=== PATIENT | female | born 2005 | race Caucasian/White ===

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

== ENCOUNTER 2023-01-26 11:50 | Emergency (ER) | payer OTHER, MEDICAID, SELFPAY ==
[2023-01-26 11:53] VITALS: BP 144/83; PULSE 87; RESP 16; TEMP 36.4; O2SAT 99; BMI 19.2
--- NOTE | 2023-01-26 12:07 | DI.RAD.S_ITS ---
PROCEDURE: XR CHEST 1V INDICATIONS: Chest pain TECHNIQUE: One view of the chest was acquired. COMPARISON: None. FINDINGS: Surgical changes and devices: None. Lungs and pleura: Lungs are clear. No pleural effusions or pneumothorax. Mediastinum: Mediastinal contours appear normal. Heart size is normal. Bones and chest wall: No suspicious bony lesions. Overlying soft tissues appear unremarkable. IMPRESSION: No acute cardiopulmonary abnormality is seen. Dictated by: Raj Lucero M.D. on 01/26/2023 at 11:33 Approved by: Raj Lucero M.D. on 01/26/2023 at 11:36
[2023-01-26 12:12] VITALS: PULSE 80; RESP 26; O2SAT 99
[2023-01-26 12:30] VITALS: BP 128/84; PULSE 81; RESP 25; O2SAT 100
--- NOTE | 2023-01-26 12:33 | ED.GENADULT ---
HPI - General Adult General Chief complaint: Abdominal Pain Stated complaint: severe abd pain severe chest pain Time Seen by Provider: 01/26/23 12:03 Source: patient Mode of arrival: Ambulatory History of Present Illness HPI narrative: Patient is a 17-year-old female. Has had a longstanding history of abdominal discomfort. Has been seen here in the emergency department multiple times. He is being followed by GI. Had an abdominal MRI done on of last week. This was performed at an outside facility. She is here because of the continued abdominal pain and also no chest pain. She describes left side of her chest. It is a pressure. Potentially gets worse with palpation. Reports fevers at home. No cough. No sore throat. No headache. Related Data Previous Rx's Medication Instructions Recorded acetaminophen 300 mg-codeine 30 mg 1 tab PO Q4-6H PRN pain #7 tabs 03/27/21 tablet metoclopramide HCl 10 mg tablet 10 mg PO Q6H PRN nausea and 12/18/22 (Reglan) vomiting #20 tabs tetracycline 500 mg capsule 500 mg PO Q12H #14 caps 12/22/22 dicyclomine 20 mg tablet 20 mg PO BID PRN abdominal pain 12/28/22 #30 tabs metoclopramide HCl 10 mg tablet 10 mg PO Q6H PRN nausea and 12/28/22 (Reglan) vomiting #30 tabs promethazine 25 mg tablet 25 mg PO Q6H PRN nausea and 01/26/23 vomiting #14 tabs Allergies Allergy/AdvReac Type Severity Reaction Status Date / Time cephalexin AdvReac Mild Vomiting, Verified 12/28/22 19:19 bloody diarrhea Review of Systems Constitutional Constitutional: Reports system reviewed and no additional complaints, except as documented Cardiovascular Cardiovascular: Reports system reviewed and no additional complaints, except as documented Respiratory Respiratory: Reports system reviewed and no additional complaints, except as documented Gastrointestinal Gastrointestinal: Reports system reviewed and no additional complaints, except as documented Hematologic/Lymphatic On Anticoagulants: No Patient History Medical History Healthy adult Social History housing: house Smoking Status: Never smoker Smoking Status: Never smoker alcohol intake frequency: 0-2 drinks per day Substance Use Type: marijuana Exam Initial Vital Signs Initial Vital Signs: Vital Signs Temperature 97.5 F L 01/26/23 11:53 Pulse Rate 87 01/26/23 11:53 Respiratory Rate 16 01/26/23 11:53 Blood Pressure 144/83 H 01/26/23 11:53 Pulse Oximetry 99 01/26/23 11:53 Oxygen Delivery Method Room Air 01/26/23 11:53 Const General: cooperative, comfortable and No ill appearing HENMT Head: normal to inspection Chest Other: Mild tenderness to palpation left anterior chest Resp Effort & Inspection: normal respiratory effort Auscultation: clear to auscultation bilaterally Cardio Rate: regular rate Skin General: no rashes or lesions noted Neuro General: patient alert and patient awake Extrem General: capillary refill normal Course Orders Ordered: ED Orders 01/26/23 12:07 XR chest 1V Stat EKG-12 Lead Stat 01/26/23 12:40 Complete Blood Count AUTO DIFF Stat Comprehensive Metabolic Panel Stat Lipase Stat Discontinued Medications Ondansetron HCl (Ondansetron 4 Mg Odt) 4 mg SL NOW ONE Stop: 01/26/23 12:22 Last Admin: 01/26/23 12:25 Dose: Not Given Documented By: ORALIA Ondansetron HCl (Ondansetron 4 Mg/2 Ml Inj) 4 mg IV NOW ONE Stop: 01/26/23 12:32 Last Admin: 01/26/23 12:43 Dose: 4 mg Documented By: ORALIA Tramadol HCl (Tramadol 50 Mg Prepack) 1 bottle MISC DIRECTED ONE Stop: 01/26/23 14:45 Vital Signs Vital signs: Vital Signs - 8 hr 01/26/23 11:53 01/26/23 12:12 01/26/23 12:30 Temperature 97.5 F L Pulse Rate 87 80 81 Respiratory Rate 16 26 H 25 H Blood Pressure 144/83 H Pulse Oximetry 99 99 100 Oxygen Delivery Method Room Air Room Air Room Air 01/26/23 12:30 01/26/23 13:00 01/26/23 13:00 Temperature Pulse Rate 71 Respiratory Rate 28 H Blood Pressure 128/84 111/74 Pulse Oximetry 99 Oxygen Delivery Method Room Air 01/26/23 13:30 01/26/23 13:30 01/26/23 14:00 Temperature Pulse Rate 69 69 Respiratory Rate 25 H 25 H Blood Pressure 112/68 Pulse Oximetry 99 98 Oxygen Delivery Method Room Air Room Air 01/26/23 14:00 Temperature Pulse Rate Respiratory Rate Blood Pressure 120/69 Pulse Oximetry Oxygen Delivery Method Medical Decision Making Lab Data 01/26/23 12:40 01/26/23 12:40 Labs: Lab Results 01/26/23 Range/Units 12:40 WBC 3.7 L (4.5-11.0) X10^3/uL RBC 4.09 (4.0-5.2) X10^6/uL Hgb 12.2 (12.0-16.0) g/dL Hct 35.8 L (36-46) % MCV 87.5 (80-100) fL MCH 29.7 (26-34) PG MCHC 34.0 (30-36) % RDW 12.4 (11.6-14.8) % Plt Count 137 L (150-400) X10^3/uL Neut % (Auto) 62.7 (50-75) % Lymph % (Auto) 29.5 (25-40) % [place] % (Auto) 6.5 (3-14) % Eos % (Auto) 0.7 L (2-4) % Baso % (Auto) 0.6 (0-2) % Neut # (Auto) 2300 (3151-5190) /uL Lymph # (Auto) 1100 (9042-3135) /uL [place] # (Auto) 200 (0-900) /uL Eos # (Auto) 0 (0-450) /uL Baso # (Auto) 0 (0-100) /uL Sodium 136 L (137-145) mmol/L Potassium 3.5 (3.4-5.1) mmol/L Chloride 103 (98-107) mmol/L Carbon Dioxide 25 (22-32) mmol/L BUN 9 (7-17) mg/dL Creatinine 0.54 (0.52-1.04) mg/dL Estimated GFR > 60 (>60) mL/min BUN/Creatinine Ratio 16.7 (6-22) Glucose 86 (70-100) mg/dL Calcium 9.5 (8.4-10.2) mg/dL Total Bilirubin 0.5 (0.2-1.3) mg/dL AST 18 (14-36) IU/L ALT 12 (<35) IU/L Alkaline Phosphatase 52 (38-126) U/L Total Protein 7.4 (6.3-8.2) g/dL Albumin 4.7 (3.5-5.0) g/dL Globulin 2.7 (1.7-4.1) g/dL Albumin/Globulin Ratio 1.7 (1.0-2.8) Lipase 27 (23-300) U/L Imaging Data Chest x-ray: Radiologist's Impression: PROCEDURE:? XR CHEST 1V ? INDICATIONS:? Chest pain ? TECHNIQUE:? One view of the chest was acquired.?? ? COMPARISON:? None. ? FINDINGS:?? ? Surgical changes and devices:? None.?? ? Lungs and pleura:? Lungs are clear.? No pleural effusions or pneumothorax.?? ? Mediastinum:? Mediastinal contours appear normal.? Heart size is normal.?? ? Bones and chest wall:? No suspicious bony lesions.? Overlying soft tissues appear? unremarkable.? IMPRESSION:?? ? No acute cardiopulmonary abnormality is seen.? ECG Data Attestation: I personally reviewed and interpreted this ECG as follows: Interpretation: Sinus rhythm Ventricular rate is 77 Normal axis Normal QRS No ST T wave changes MDM Narrative Medical decision making narrative: Workup here in the emergency department is unremarkable. Labs are unchanged from prior. Chest x-ray is unremarkable. Further workup is required in the ER. Advised the patient that she contact her GI doctor to discuss the MRI results she had done at the end of last week. I do not have those here available to discuss with her. Low suspicion for ACS. No indication for antibiotics. Supple sent home with a prescription for Phenergan as she is still having some nausea at home. Prepack of tramadol. Patient was given return precautions. She expressed understanding and agreement. Discharge Plan Departure Patient Disposition: Home Clinical Impression: Abdominal pain, Chest pain Instructions: DI for Abdominal Pain-Adult Activity Restrictions/Additional Instructions: Recommend that you continue to take all of your medications as directed. I also recommend that you contact the GI doctor tomorrow to discuss the findings of the MRI. Return to the emergency department for new symptoms. Prescriptions: New promethazine 25 mg tablet 25 mg PO Q6H PRN (Reason: nausea and vomiting) Qty: 14 0RF No Action metoclopramide HCl [Reglan] 10 mg tablet 10 mg PO Q6H PRN (Reason: nausea and vomiting) Qty: 20 0RF tetracycline 500 mg capsule 500 mg PO Q12H Qty: 14 0RF dicyclomine 20 mg tablet 20 mg PO BID PRN (Reason: abdominal pain) Qty: 30 0RF metoclopramide HCl [Reglan] 10 mg tablet 10 mg PO Q6H PRN (Reason: nausea and vomiting) Qty: 30 0RF acetaminophen-codeine 300-30 mg tablet 1 tab PO Q4-6H PRN (Reason: pain) Qty: 7 0RF Referrals: Krystyna Painting MD [Primary Care Provider] - Stand Alone Forms: Patient Portal/API
[2023-01-26] MEDS: ONDANSETRON 4 MG/2 ML INJ IV (12:43)
[2023-01-26 12:45] LABS: Add Manual Diff / Slide Review NO; Basophils Absolute Auto 0 /uL (0-100); Basophils Percent Auto 0.6 % (0-2); Eosinophils Absolute Auto 0 /uL (0-450); Eosinophils Percent Auto 0.7 % (2-4); Hematocrit 35.8 % (36-46); Hemoglobin 12.2 g/dL (12.0-16.0); Lymphocytes Absolute Auto 1100 /uL (1100-4500); Lymphocytes Percent Auto 29.5 % (25-40); Mean Corpuscular Hemoglobin 29.7 PG (26-34); Mean Corpuscular Volume 87.5 fL (80-100); Monocytes Absolute Auto 200 /uL (0-900); Monocytes Percent Auto 6.5 % (3-14); Neutrophils Absolute Auto 2300 /uL (1500-7000); Neutrophils Percent Auto 62.7 % (50-75); Platelet Count 137 X10^3/uL (150-400); Red Blood Cell Count 4.09 X10^6/uL (4.0-5.2); Red Cell Distribution Width 12.4 % (11.6-14.8); White Blood Cell Count 3.7 X10^3/uL (4.5-11.0)
[2023-01-26 12:56] LABS: Alanine Aminotransferase 12 IU/L (<35); Albumin 4.7 g/dL (3.5-5.0); Albumin Globulin Ratio 1.7 (1.0-2.8); Alkaline Phosphatase 52 U/L (38-126); Aspartate Aminotransferase 18 IU/L (14-36); BUN Creatinine Ratio 16.7 (6-22); Bilirubin Total 0.5 mg/dL (0.2-1.3); Blood Urea Nitrogen 9 mg/dL (7-17); Calcium 9.5 mg/dL (8.4-10.2); Carbon Dioxide 25 mmol/L (22-32); Chloride 103 mmol/L (98-107); Estimated Glomerular Filt Rate > 60 mL/min (>60); Globulin 2.7 g/dL (1.7-4.1); Glucose 86 mg/dL (70-100); HEMOLYSIS < 15 (0-50); Lipase 27 U/L (23-300); Potassium 3.5 mmol/L (3.4-5.1); Sodium 136 mmol/L (137-145); Total Protein 7.4 g/dL (6.3-8.2)
[2023-01-26 13:00] VITALS: BP 111/74; PULSE 71; RESP 28; O2SAT 99
[2023-01-26 13:30] VITALS: BP 112/68; PULSE 69; RESP 25; O2SAT 99
[2023-01-26 14:00] VITALS: BP 120/69; PULSE 69; RESP 25; O2SAT 98
[2023-01-26] MEDS: TRAMADOL 50 MG PREPACK 1 BOTTLE MISC (14:56)
== END 2023-01-26 15:00 | disposition home or self-care (01) ==
PROVIDERS: Emergency Provider Emergency Medicine; PCP Family Medicine
DX: R07.9 Chest pain, unspecified (principal); R10.9 Unspecified abdominal pain
CPT/HCPCS: 36415; 71045; 80053; 83690; 85025; 93005; 96374; 99284; J2405

== ENCOUNTER 2023-03-02 15:01 | Emergency (ER) | payer OTHER, MEDICAID, SELFPAY ==
[2023-03-02 15:04] VITALS: BP 125/70; PULSE 115; RESP 20; TEMP 36.2; O2SAT 99; BMI 19.2
--- NOTE | 2023-03-02 15:18 | ED.ABDPAIN ---
HPI - Abdominal Pain <Erinn Tinoco PA-C - Last Filed: 03/02/23 19:04> General Chief Complaint: Abdominal Pain Stated Complaint: states compressed celiac artery/pre-surg/pain Time Seen by Provider: 03/02/23 15:17 Source: patient Mode of arrival: Ambulatory History of Present Illness HPI narrative: Patient is a 17-year-old female with longstanding history of abdominal pain. 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 She is going to consult with surgery tomorrow. She was given a prescription for pain medication, but it was not authorized. She endorses a fever several days ago of 101.5, but states that she is been having fevers on and off regularly. She states that her primary care is with [facility]. She notes her primary care provider prescribed her 2 rounds of 18 pills of hydrocodone Tylenol. Patient states she takes 1 hydrocodone a day, and tries to avoid taking it when possible. She states that over the weekend the insurance did not authorize the most recent prescription and she was unable to pick it up. She states her abdominal pain is worse in the center left side in his a 09/02. She also reports that she is had regular vomiting. She states she took Phenergan today, but it does not seem to be working as well. She notes that she does not take Zofran because it is not effective for her. She also states she is had to avoid NSAIDs, because she thinks she is been told her blood is thin. Her most recent episode of pain started about 3 days ago and kept her up all last night. Pain medication which she thinks his hydrocodone Tylenol Related Data Previous Rx's Medication Instructions Recorded acetaminophen 300 mg-codeine 30 mg 1 tab PO Q4-6H PRN pain #7 tabs 03/27/21 tablet metoclopramide HCl 10 mg tablet 10 mg PO Q6H PRN nausea and 12/18/22 (Reglan) vomiting #20 tabs tetracycline 500 mg capsule 500 mg PO Q12H #14 caps 12/22/22 dicyclomine 20 mg tablet 20 mg PO BID PRN abdominal pain 12/28/22 #30 tabs metoclopramide HCl 10 mg tablet 10 mg PO Q6H PRN nausea and 12/28/22 (Reglan) vomiting #30 tabs promethazine 25 mg tablet 25 mg PO Q6H PRN nausea and 01/26/23 vomiting #14 tabs acetaminophen 300 mg-codeine 30 mg 1 tab PO Q4-6H PRN pain #7 tabs 03/02/23 tablet Allergies Allergy/AdvReac Type Severity Reaction Status Date / Time cephalexin AdvReac Mild Vomiting, Verified 12/28/22 19:19 bloody diarrhea Review of Systems <Erinn Tinoco PA-C - Last Filed: 03/02/23 19:04> Review of Systems Narrative: see HPI Patient History <Erinn Tinoco PA-C - Last Filed: 03/02/23 19:04> Medical History Healthy adult Social History housing: house Smoking Status: Never smoker Smoking Status: Never smoker alcohol intake frequency: 0-2 drinks per day Substance Use Type: marijuana Exam <Erinn Tinoco PA-C - Last Filed: 03/02/23 19:04> Initial Vital Signs Initial Vital Signs: Vital Signs Temperature 97.2 F L 03/02/23 15:04 Pulse Rate 115 H 03/02/23 15:04 Respiratory Rate 20 03/02/23 15:04 Blood Pressure 125/70 03/02/23 15:04 Pulse Oximetry 99 03/02/23 15:04 Oxygen Delivery Method Room Air 03/02/23 15:04 GENERAL: 17 year old patient appears stated age. Well-developed patient, in no acute distress. HEAD: Atraumatic. Normocephalic. EYES: Pupils equal round and reactive. Extraocular motions intact. No scleral icterus. No injection or drainage. NECK: Trachea midline. Non tender. CARDIOVASCULAR: Regular rate and rhythm without murmurs, gallops, or rubs. RESPIRATORY: Clear to auscultation. Breath sounds equal bilaterally. No wheezes, rales, or rhonchi. GASTROINTESTINAL: Abdomen soft, tender in epigastric area, nontender in bilateral lower quadrants NEURO: AOx3. SKIN: No rash or erythema of visible areas <Azar Ley DO - Last Filed: 03/04/23 17:59> Initial Vital Signs Initial Vital Signs: Vital Signs Temperature 97.2 F L 03/02/23 15:04 Pulse Rate 115 H 03/02/23 15:04 Respiratory Rate 20 03/02/23 15:04 Blood Pressure 125/70 03/02/23 15:04 Pulse Oximetry 99 03/02/23 15:04 Oxygen Delivery Method Room Air 03/02/23 15:04 Course <Erinn Tinoco PA-C - Last Filed: 03/02/23 19:04> Orders Ordered: Discontinued Medications Sodium Chloride (Normal Saline 0.9%) 1,000 mls @ 1,000 mls/hr IV BOLUS PRN PRN Reason: Fluid replacement Last Infusion: 03/02/23 18:02 Dose: Infused Documented By: JULIO CÉSAR Admin: 03/02/23 17:00 Dose: 1,000 mls/hr Documented By: JULIO CÉSAR Oxycodone HCl (Oxycodone Ir 5 Mg Tablet) 5 mg PO NOW ONE Stop: 03/02/23 16:29 Last Admin: 03/02/23 17:15 Dose: Not Given Documented By: JULIO CÉSAR Oxycodone HCl (Oxycodone Ir 5 Mg Tablet) 5 mg PO NOW ONE Stop: 03/02/23 16:40 Last Admin: 03/02/23 17:15 Dose: 5 mg Documented By: JULIO CÉSAR Vital Signs Vital signs: Vital Signs - 8 hr 03/02/23 15:04 03/02/23 16:08 03/02/23 18:43 Temperature 97.2 F L Pulse Rate 115 H 91 H 82 Respiratory Rate 20 21 18 Blood Pressure 125/70 112/70 118/74 Pulse Oximetry 99 97 98 Oxygen Delivery Method Room Air Room Air Room Air <Azar Ley DO - Last Filed: 03/04/23 17:59> Orders Ordered: Discontinued Medications Sodium Chloride (Normal Saline 0.9%) 1,000 mls @ 1,000 mls/hr IV BOLUS PRN PRN Reason: Fluid replacement Last Infusion: 03/02/23 18:02 Dose: Infused Documented By: JULIO CÉSAR Admin: 03/02/23 17:00 Dose: 1,000 mls/hr Documented By: JULIO CÉSAR Oxycodone HCl (Oxycodone Ir 5 Mg Tablet) 5 mg PO NOW ONE Stop: 03/02/23 16:29 Last Admin: 03/02/23 17:15 Dose: Not Given Documented By: JULIO CÉSAR Oxycodone HCl (Oxycodone Ir 5 Mg Tablet) 5 mg PO NOW ONE Stop: 03/02/23 16:40 Last Admin: 03/02/23 17:15 Dose: 5 mg Documented By: JULIO CÉSAR Vital Signs Vital signs: Vital Signs - 8 hr 03/02/23 15:04 03/02/23 16:08 03/02/23 18:43 Temperature 97.2 F L Pulse Rate 115 H 91 H 82 Respiratory Rate 20 21 18 Blood Pressure 125/70 112/70 118/74 Pulse Oximetry 99 97 98 Oxygen Delivery Method Room Air Room Air Room Air MDM - Abdominal Pain <Erinn Tinoco PA-C - Last Filed: 03/02/23 19:04> Lab Data 03/02/23 17:05 03/02/23 17:05 Labs: Lab Results 03/02/23 Range/Units 17:05 WBC 6.4 (4.5-11.0) X10^3/uL RBC 4.32 (4.0-5.2) X10^6/uL Hgb 12.8 (12.0-16.0) g/dL Hct 37.4 (36-46) % MCV 86.6 (80-100) fL MCH 29.5 (26-34) PG MCHC 34.1 (30-36) % RDW 12.6 (11.6-14.8) % Plt Count 160 (150-400) X10^3/uL Neut % (Auto) 69.6 (50-75) % Lymph % (Auto) 23.2 L (25-40) % [place] % (Auto) 6.2 (3-14) % Eos % (Auto) 0.5 L (2-4) % Baso % (Auto) 0.5 (0-2) % Neut # (Auto) 4500 (6922-8355) /uL Lymph # (Auto) 1500 (7010-0354) /uL [place] # (Auto) 400 (0-900) /uL Eos # (Auto) 0 (0-450) /uL Baso # (Auto) 0 (0-100) /uL Sodium 138 (137-145) mmol/L Potassium 3.8 (3.4-5.1) mmol/L Chloride 104 (98-107) mmol/L Carbon Dioxide 25 (22-32) mmol/L BUN 8 (7-17) mg/dL Creatinine 0.42 L (0.52-1.04) mg/dL Estimated GFR > 60 (>60) mL/min BUN/Creatinine Ratio 19.0 (6-22) Glucose 84 (70-100) mg/dL Calcium 9.7 (8.4-10.2) mg/dL Total Bilirubin 0.4 (0.2-1.3) mg/dL AST 18 (14-36) IU/L ALT 13 (<35) IU/L Alkaline Phosphatase 50 (38-126) U/L Total Protein 7.4 (6.3-8.2) g/dL Albumin 4.6 (3.5-5.0) g/dL Globulin 2.8 (1.7-4.1) g/dL Albumin/Globulin Ratio 1.6 (1.0-2.8) Lipase 28 (23-300) U/L Point of care testing: Point of Care Testing Test Results Negative MDM Narrative Medical decision making narrative: Patient is a 17-year-old female presenting for evaluation of epigastric pain. She has had this abdominal pain for the last 2 years of similar quality with fevers on and off. She states recently it was discovered that the pain may be caused by pressure on her celiac artery. She came in for evaluation in the ER today because she was unable to sweet pickle maker an antiemetic medication from her primary care provider and her pain has worsened over the last 3 or 4 days. She is requesting pain management. She is planning to call a surgeon tomorrow to continue steps for evaluation of pressure on her celiac artery. Workup included CBC, CMP, lipase and urine . All within normal limits. Patient's vital signs have been within normal limits. She is not vomited during her stay this afternoon. She reported improvement to her baseline with treatment with normal saline and 5 mg of oxycodone. Multiple etiologies for patient's symptoms considered including, but not limited to: Appendicitis, pressure on celiac artery, cholecystitis, pancreatitis Prior Charts reviewed: ER visits 12/18/2022, 12/28/2022, 01/26/2023 Labs reviewed and interpreted by myself: Review of labs shows no abnormalities in CBC or CMP and no elevation of lipase. Urine is negative. Patient's vital signs are stable. Patient's symptoms improved over duration of stay with administration of IV normal saline as well as 5 mg of oxycodone. Recommend patient be discharged home as no abnormal findings were discovered, and pain has improved, and she is agreeable with this plan of care. I recommend she continue follow up as planned with surgeon to to investigate cause of abdominal pain. She states she has plenty of Phenergan and does not need any more of this medication at this time. Will provide tylenol-codeine to help with pain for the next week. Discussed that she not drive Findings and discharge diagnosis discussed with patient/family followed by verbalization of understanding Return precautions discussed with patient/family whom verbalize understanding of diagnosis and plan <Azar Ley, DO - Last Filed: 03/04/23 17:59> Lab Data Labs: Lab Results 03/02/23 Range/Units 17:05 WBC 6.4 (4.5-11.0) X10^3/uL RBC 4.32 (4.0-5.2) X10^6/uL Hgb 12.8 (12.0-16.0) g/dL Hct 37.4 (36-46) % MCV 86.6 (80-100) fL MCH 29.5 (26-34) PG MCHC 34.1 (30-36) % RDW 12.6 (11.6-14.8) % Plt Count 160 (150-400) X10^3/uL Neut % (Auto) 69.6 (50-75) % Lymph % (Auto) 23.2 L (25-40) % [place] % (Auto) 6.2 (3-14) % Eos % (Auto) 0.5 L (2-4) % Baso % (Auto) 0.5 (0-2) % Neut # (Auto) 4500 (7825-1269) /uL Lymph # (Auto) 1500 (6515-9564) /uL [place] # (Auto) 400 (0-900) /uL Eos # (Auto) 0 (0-450) /uL Baso # (Auto) 0 (0-100) /uL Sodium 138 (137-145) mmol/L Potassium 3.8 (3.4-5.1) mmol/L Chloride 104 (98-107) mmol/L Carbon Dioxide 25 (22-32) mmol/L BUN 8 (7-17) mg/dL Creatinine 0.42 L (0.52-1.04) mg/dL Estimated GFR > 60 (>60) mL/min BUN/Creatinine Ratio 19.0 (6-22) Glucose 84 (70-100) mg/dL Calcium 9.7 (8.4-10.2) mg/dL Total Bilirubin 0.4 (0.2-1.3) mg/dL AST 18 (14-36) IU/L ALT 13 (<35) IU/L Alkaline Phosphatase 50 (38-126) U/L Total Protein 7.4 (6.3-8.2) g/dL Albumin 4.6 (3.5-5.0) g/dL Globulin 2.8 (1.7-4.1) g/dL Albumin/Globulin Ratio 1.6 (1.0-2.8) Lipase 28 (23-300) U/L Point of care testing: Point of Care Testing Test Results Negative Discharge Plan Departure Patient Disposition: Home Clinical Impression: Abdominal pain Qualifiers: Abdominal location: epigastric Qualified Code(s): R10.13 - Epigastric pain Activity Restrictions/Additional Instructions: Thank you for coming in today for your care regarding or abdominal pain. Blood work did not show any sign of infection and urine was negative. I recommend you continue with your current plan to set an appointment with a surgeon to continue discussing the concern for cause of your abdominal pain as pressure on the celiac artery. You may continue taking Phenergan at home. Your pain improved today with 5 mg of oxycodone as well as IV fluids. Please have somebody drive you home today. I will provide you with a prescription of Tylenol and codeine to help with your pain. Do not take this with your promethazine as it may cause respiratory depression. Do not drive while taking this medication. Prescriptions: New acetaminophen-codeine 300-30 mg tablet 1 tab PO Q4-6H PRN (Reason: pain) Qty: 7 0RF Rx Instructions: Do not take with promethazine as it may cause respiratory depression taken together No Action metoclopramide HCl [Reglan] 10 mg tablet 10 mg PO Q6H PRN (Reason: nausea and vomiting) Qty: 20 0RF tetracycline 500 mg capsule 500 mg PO Q12H Qty: 14 0RF dicyclomine 20 mg tablet 20 mg PO BID PRN (Reason: abdominal pain) Qty: 30 0RF metoclopramide HCl [Reglan] 10 mg tablet 10 mg PO Q6H PRN (Reason: nausea and vomiting) Qty: 30 0RF promethazine 25 mg tablet 25 mg PO Q6H PRN (Reason: nausea and vomiting) Qty: 14 0RF acetaminophen-codeine 300-30 mg tablet 1 tab PO Q4-6H PRN (Reason: pain) Qty: 7 0RF Referrals: Krystyna Painting MD [Primary Care Provider] - Stand Alone Forms: Patient Portal/API ED Sign-out <Azar Ley, - Last Filed: 03/04/23 17:59> [facility] Dr Ley Co-Sign Statement: I was available for consultation during this patient's emergency department visit. This chart is signed by myself for administrative purposes only. I did not have direct contact with this patient during this visit. They were seen independently by the APC.
[2023-03-02 16:08] VITALS: BP 112/70; PULSE 91; RESP 21; O2SAT 97
[2023-03-02] MEDS: SODIUM CHLORIDE 0.9% 1,000 ML 1000 ML IV (17:00)
[2023-03-02] MEDS: OXYCODONE IR 5 MG TABLET PO (17:15)
[2023-03-02 17:21] LABS: Add Manual Diff / Slide Review NO; Basophils Absolute Auto 0 /uL (0-100); Basophils Percent Auto 0.5 % (0-2); Eosinophils Absolute Auto 0 /uL (0-450); Eosinophils Percent Auto 0.5 % (2-4); Hematocrit 37.4 % (36-46); Hemoglobin 12.8 g/dL (12.0-16.0); Lymphocytes Absolute Auto 1500 /uL (1100-4500); Lymphocytes Percent Auto 23.2 % (25-40); Mean Corpuscular HGB Conc 34.1 % (30-36); Mean Corpuscular Hemoglobin 29.5 PG (26-34); Mean Corpuscular Volume 86.6 fL (80-100); Monocytes Absolute Auto 400 /uL (0-900); Monocytes Percent Auto 6.2 % (3-14); Neutrophils Absolute Auto 4500 /uL (1500-7000); Neutrophils Percent Auto 69.6 % (50-75); Platelet Count 160 X10^3/uL (150-400); Red Blood Cell Count 4.32 X10^6/uL (4.0-5.2); Red Cell Distribution Width 12.6 % (11.6-14.8); White Blood Cell Count 6.4 X10^3/uL (4.5-11.0)
[2023-03-02 17:32] LABS: Alanine Aminotransferase 13 IU/L (<35); Albumin 4.6 g/dL (3.5-5.0); Albumin Globulin Ratio 1.6 (1.0-2.8); Alkaline Phosphatase 50 U/L (38-126); Aspartate Aminotransferase 18 IU/L (14-36); Bilirubin Total 0.4 mg/dL (0.2-1.3); Blood Urea Nitrogen 8 mg/dL (7-17); Calcium 9.7 mg/dL (8.4-10.2); Carbon Dioxide 25 mmol/L (22-32); Chloride 104 mmol/L (98-107); Estimated Glomerular Filt Rate > 60 mL/min (>60); Globulin 2.8 g/dL (1.7-4.1); Glucose 84 mg/dL (70-100); HEMOLYSIS 20 (0-50); Lipase 28 U/L (23-300); Potassium 3.8 mmol/L (3.4-5.1); Sodium 138 mmol/L (137-145); Total Protein 7.4 g/dL (6.3-8.2)
[2023-03-02 18:43] VITALS: BP 118/74; PULSE 82; RESP 18; O2SAT 98
== END 2023-03-02 19:04 | disposition home or self-care (01) ==
PROVIDERS: Emergency Provider Physician Assistant; PCP Family Medicine
DX: R10.13 Epigastric pain (principal)
CPT/HCPCS: 80053; 81025; 83690; 85025; 96360; 99284

== ENCOUNTER 2023-03-15 22:36 | Emergency (ER) | payer OTHER, MEDICAID, SELFPAY ==
--- NOTE | 2023-03-15 22:42 | ED_ITS ---
HPI - Abdominal Pain General Chief Complaint: Abdominal Pain Stated Complaint: ABD Pain Excessive Vaginal Bleeding w/clots Time Seen by Provider: 03/15/23 22:39 Source: patient, RN notes reviewed and old records reviewed Mode of arrival: Ambulatory Limitations: no limitations History of Present Illness HPI narrative: 17-year-old female with history of chronic abdominal pain, patient presents today with left lower quadrant pain and vaginal bleeding. She was seen here on 03/12/2023. She states this feels different than her typical abdominal pain, location and characterization. States it has been going on for the last day or so. She has not had any fevers. She has had some nausea and vomiting. She states she has been going through super tampon hourly for the past 2-3 days. She states she does get irregular menses 2nd her Implanon. They are usually very heavy but not to this extent. States she has not had a bowel movement in 3 or 4 days but passing flatus regularly. States she is having some urgency and frequency. She did take a dose of promethazine in the morning and a dose of hydrocodone in the afternoon. She states he is were somewhat helpful. Patient states she is sexually active, does have an Implanon in place. States no other regular prescriptions besides PRN promethazine and hydrocodone. Denies any prior surgeries. No tobacco, occasional uses marijuana but no recreational drugs. Has been following with Gastroenterology for abdominal pain. Related Data Previous Rx's Medication Instructions Recorded acetaminophen 300 mg-codeine 30 mg 1 tab PO Q4-6H PRN pain #7 tabs 03/27/21 tablet metoclopramide HCl 10 mg tablet 10 mg PO Q6H PRN nausea and 12/18/22 (Reglan) vomiting #20 tabs tetracycline 500 mg capsule 500 mg PO Q12H #14 caps 12/22/22 dicyclomine 20 mg tablet 20 mg PO BID PRN abdominal pain 12/28/22 #30 tabs metoclopramide HCl 10 mg tablet 10 mg PO Q6H PRN nausea and 12/28/22 (Reglan) vomiting #30 tabs promethazine 25 mg tablet 25 mg PO Q6H PRN nausea and 01/26/23 vomiting #14 tabs acetaminophen 300 mg-codeine 30 mg 1 tab PO Q4-6H PRN pain #7 tabs 03/02/23 tablet ketorolac 10 mg tablet 10 mg PO QID PRN pain #10 tabs 03/16/23 Allergies Allergy/AdvReac Type Severity Reaction Status Date / Time cephalexin AdvReac Mild Vomiting, Verified 12/28/22 19:19 bloody diarrhea Review of Systems Review of Systems ROS Unobtainable: All systems reviewed & are unremarkable except as noted in HPI and below Patient History Medical History Healthy adult Social History housing: house Smoking Status: Never smoker Smoking Status: Never smoker alcohol intake frequency: 0-2 drinks per day Substance Use Type: marijuana Exam Narrative Exam Narrative: GENERAL: Alert and oriented x three, female in mild distress HEENT: Head normocephalic, atraumatic, EOMI, pupils reactive, face symmetric, moist mucous membranes NECK: Supple, full range of motion CARDIOVASCULAR: Regular rate and rhythm without murmurs, rubs or gallops. RESPIRATORY: Breath sounds equal bilaterally, no wheezes rales or rhonchi. ABDOMEN: Soft, [id number] left lower quadrant tenderness, Normoactive bowel sounds all 4 quadrants. No guarding or rebound, rigidity, no mass : No CVA tenderness bilaterally EXTREMITIES: Normal range of motion, no clubbing or edema. Neurovascularly intact NEUROLOGICAL: Cranial nerves II through XII grossly intact. Moving all extremities SKIN: Warm, dry, no petechiae, no rashes or lesions. Initial Vital Signs Initial Vital Signs: Vital Signs Temperature 99.2 F 03/15/23 22:44 Pulse Rate 103 H 03/15/23 22:44 Respiratory Rate 18 03/15/23 22:44 Blood Pressure 149/85 H 03/15/23 22:44 Pulse Oximetry 100 03/15/23 22:44 Oxygen Delivery Method Room Air 03/15/23 22:44 Course Orders Ordered: ED Orders 03/15/23 22:46 US pelvic complete Stat 03/15/23 22:55 CBC Auto Diff [Complete Blood Count AUTO DIFF] Stat CMP [Comprehensive Metabolic Panel] Stat Lipase Stat Discontinued Medications Ketorolac Tromethamine (Ketorolac 30 Mg/Ml Vial) 15 mg IV NOW ONE Stop: 03/15/23 22:47 Last Admin: 01/20/24 23:04 Dose: 15 mg Documented By: MANDI Ondansetron HCl (Ondansetron 4 Mg/2 Ml Inj) 4 mg IV NOW ONE Stop: 03/15/23 22:47 Last Admin: 03/15/23 23:02 Dose: 4 mg Documented By: MANDI Vital Signs Vital signs: Vital Signs - 8 hr 03/15/23 22:44 Temperature 99.2 F Pulse Rate 103 H Respiratory Rate 18 Blood Pressure 149/85 H Pulse Oximetry 100 Oxygen Delivery Method Room Air MDM - Abdominal Pain Lab Data 03/15/23 22:55 03/15/23 22:55 Labs: Lab Results 03/15/23 Range/Units 22:55 WBC 6.0 (4.5-11.0) X10^3/uL RBC 4.25 (4.0-5.2) X10^6/uL Hgb 12.5 (12.0-16.0) g/dL Hct 37.1 (36-46) % MCV 87.2 (80-100) fL MCH 29.5 (26-34) PG MCHC 33.8 (30-36) % RDW 12.7 (11.6-14.8) % Plt Count 141 L (150-400) X10^3/uL Neut % (Auto) 62.1 (50-75) % Lymph % (Auto) 28.5 (25-40) % [place] % (Auto) 5.9 (3-14) % Eos % (Auto) 1.3 L (2-4) % Baso % (Auto) 2.2 H (0-2) % Neut # (Auto) 3700 (1040-6413) /uL Lymph # (Auto) 1700 (7205-4371) /uL [place] # (Auto) 400 (0-900) /uL Eos # (Auto) 100 (0-450) /uL Baso # (Auto) 100 (0-100) /uL Sodium 136 L (137-145) mmol/L Potassium 3.2 L (3.4-5.1) mmol/L Chloride 101 (98-107) mmol/L Carbon Dioxide 26 (22-32) mmol/L BUN 10 (7-17) mg/dL Creatinine 0.53 (0.52-1.04) mg/dL Estimated GFR > 60 (>60) mL/min BUN/Creatinine Ratio 18.9 (6-22) Glucose 121 H (70-100) mg/dL Calcium 9.4 (8.4-10.2) mg/dL Total Bilirubin 0.4 (0.2-1.3) mg/dL AST 34 (14-36) IU/L ALT 16 (<35) IU/L Alkaline Phosphatase 54 (38-126) U/L Total Protein 7.6 (6.3-8.2) g/dL Albumin 4.7 (3.5-5.0) g/dL Globulin 2.9 (1.7-4.1) g/dL Albumin/Globulin Ratio 1.6 (1.0-2.8) Lipase 39 (23-300) U/L Point of care testing: Point of Care Testing Test Results Negative Urine Dip Bedside Urine Glucose Negative Bedside Urine Bilirubin - Negative Bedside Urine Ketone - Negative Urine Specific [place] 1.015 Bedside Urine Occult Blood - Negative Bedside Urine pH 6 Bedside Urine Protein - Negative Bedside Urine Urobilinogen - Negative Bedside Urine Nitrite - Negative Bedside Urine Leukocytes - Negative Esterase Imaging Data pelvic US: Radiologist's Impression: Close Pelvis Ultrasound (Signed) Da Puente - 03/15/23 [place] [address] Ultrasound Report Signed Patient: Jillian Grady MR#: [id number] : 2005 Acct:[id number] Age/Sex: 17 / F Date of Service: 03/15/23 Loc: ED Accession Number: [id number] Procedure: US pelvic complete Ordering Provider: Krystyna Kemp D.O. PROCEDURE: US PELVIC COMPLETE INDICATIONS: LLQ pain, vaginal bleeding, hx ovarian cysts, irregular qian TECHNIQUE: Real-time scanning was performed of the pelvic organs, with image documentation. Additional endovaginal scanning was necessary due to incomplete visualization of the adnexal and endometrial structures by transabdominal scanning. COMPARISON: None. FINDINGS: Uterus: Uterus is anteverted and normal in size at 3.5 x 4.5 x 6.4 cm. The myometrium is homogeneous. The endometrium measures 3.0 mm combined thickness. No uterine fibroids are seen Ovaries: The right ovary measures 3.1 x 2.7 x 2.0 cm, with a calculated ovarian volume of 8.8 cc. The left ovary measures 3.9 x 3.0 x 2.7 cm, with a calculated ovarian volume of 16.5 cc. This is associated with presence of a complex cyst at the left ovary with internal septations, overall measuring 2.6 x 2.2 x 1.6 cm. The ovaries have a normal sonographic appearance. Less than 12 follicles can be seen in each ovary. No adnexal masses are seen. Other: No pathologic free abdominal or pelvic fluid. The city attorney noted area of maximal tenderness correlated to the left common iliac vein area with sonographic compression increasing the velocities within this vessel. This is a nonspecific finding. IMPRESSION: A definite acute process producing left pelvic pain is not identified however there is a complex cyst at the left ovary that measures up to 2.6 x 2.2 x 1.6 cm containing internal septations. This could represent sequela of hemorrhage into a previously simple cyst. Follow-up in 6-8 weeks is recommended to confirm resolution. Dictated by: Da Puente M.D. on 03/16/2023 at 1:03 Approved by: Da Puente M.D. on 03/16/2023 at 1:11 [facility] Narrative Medical decision making narrative: 17-year-old female history of chronic abdominal pain. Patient states pain feels different than her typical abdominal pain. She has seen surgical scrub technician and is having evaluation for her celiac vessel being compressed and is supposed to have a test block in the following week. She states this feels different different location different sensation. Patient has had ovarian cyst in the past she notes she is also having vaginal bleeding that is quite heavy. She typically gets very irregular heavy menses but states this is more so. CBC shows a white count of 6, hemoglobin of 12.5 with a crit of 37, platelets are 141 consistent with priors. Sodium is 136, potassium slightly low at 3.2 chloride 101 CO2 of 26, BUN of 10 and a creatinine of 0.53. Glucose is 121 with otherwise normal LFTs. Urine is negative. Point of care urine is negative for blood, nitrates or leukocyte esterase microscopy sort of 1 RBCs, 5- 10 WBCs, 5-10 squamous epithelial with many bacteria. Specimen was sent for culture. Pelvic ultrasound shows complex ovarian cyst on the left which is area of patient's pain. No obvious free fluid. Patient and I discussed potential source for her pain although she has had chronic abdominal issues in the past. She is feeling more comfortable after some medication and did not have an acute abdomen on examination. After discussion patient feels comfortable with discharge home. Discussed return precautions if worsening symptoms. Discharge Plan Departure Patient Disposition: Home Clinical Impression: Complex cyst of left ovary, Pelvic pain Activity Restrictions/Additional Instructions: Your imaging today shows a complex cyst is 2.6cm x2.2cm x 1.6cm cyst on the left ovary. You need to follow-up in 6-8 weeks for repeat ultrasound and re-evaluation. Your vaginal bleeding maybe secondary to uterine plan on and having irregular menses. If it is persisting please follow up with OBGYN. Contact information is below if you do not have provider. You may take pain medication as prescribed. You may take this pain medication with your regular prescriptions. Prescription was sent to [facility] in [place]. Please return for fevers, worsening abdominal back or flank pain, persistent vomiting, lightheadedness or passing out, black or bloody stools, difficulty with urination or other new or concerning changes. Prescriptions: New ketorolac 10 mg tablet 10 mg PO QID PRN (Reason: pain) Qty: 10 0RF No Action metoclopramide HCl [Reglan] 10 mg tablet 10 mg PO Q6H PRN (Reason: nausea and vomiting) Qty: 20 0RF tetracycline 500 mg capsule 500 mg PO Q12H Qty: 14 0RF dicyclomine 20 mg tablet 20 mg PO BID PRN (Reason: abdominal pain) Qty: 30 0RF metoclopramide HCl [Reglan] 10 mg tablet 10 mg PO Q6H PRN (Reason: nausea and vomiting) Qty: 30 0RF promethazine 25 mg tablet 25 mg PO Q6H PRN (Reason: nausea and vomiting) Qty: 14 0RF acetaminophen-codeine 300-30 mg tablet 1 tab PO Q4-6H PRN (Reason: pain) Qty: 7 0RF Rx Instructions: Do not take with promethazine as it may cause respiratory depression taken together acetaminophen-codeine 300-30 mg tablet 1 tab PO Q4-6H PRN (Reason: pain) Qty: 7 0RF Referrals: Krystyna Painting MD [Primary Care Provider] - Stand Alone Forms: Patient Portal/API
[2023-03-15 22:44] VITALS: BP 149/85; PULSE 103; RESP 18; TEMP 37.3; O2SAT 100; BMI 19.2
--- NOTE | 2023-03-15 22:46 | DI.US.S_ITS ---
PROCEDURE: US PELVIC COMPLETE INDICATIONS: LLQ pain, vaginal bleeding, hx ovarian cysts, irregular qian TECHNIQUE: Real-time scanning was performed of the pelvic organs, with image documentation. Additional endovaginal scanning was necessary due to incomplete visualization of the adnexal and endometrial structures by transabdominal scanning. COMPARISON: None. FINDINGS: Uterus: Uterus is anteverted and normal in size at 3.5 x 4.5 x 6.4 cm. The myometrium is homogeneous. The endometrium measures 3.0 mm combined thickness. No uterine fibroids are seen Ovaries: The right ovary measures 3.1 x 2.7 x 2.0 cm, with a calculated ovarian volume of 8.8 cc. The left ovary measures 3.9 x 3.0 x 2.7 cm, with a calculated ovarian volume of 16.5 cc. This is associated with presence of a complex cyst at the left ovary with internal septations, overall measuring 2.6 x 2.2 x 1.6 cm. The ovaries have a normal sonographic appearance. Less than 12 follicles can be seen in each ovary. No adnexal masses are seen. Other: No pathologic free abdominal or pelvic fluid. The sculpture conservator noted area of maximal tenderness correlated to the left common iliac vein area with sonographic compression increasing the velocities within this vessel. This is a nonspecific finding. IMPRESSION: A definite acute process producing left pelvic pain is not identified however there is a complex cyst at the left ovary that measures up to 2.6 x 2.2 x 1.6 cm containing internal septations. This could represent sequela of hemorrhage into a previously simple cyst. Follow-up in 6-8 weeks is recommended to confirm resolution. Dictated by: Da Puente M.D. on 03/16/2023 at 1:03 Approved by: Da Puente M.D. on 03/16/2023 at 1:11
[2023-03-15] MEDS: ONDANSETRON 4 MG/2 ML INJ IV (23:02)
[2023-03-15] MEDS: KETOROLAC 30 MG/ML VIAL 15 MG IV (23:04)
[2023-03-15 23:08] LABS: Add Manual Diff / Slide Review NO; Basophils Absolute Auto 100 /uL (0-100); Basophils Percent Auto 2.2 % (0-2); Eosinophils Absolute Auto 100 /uL (0-450); Eosinophils Percent Auto 1.3 % (2-4); Hematocrit 37.1 % (36-46); Hemoglobin 12.5 g/dL (12.0-16.0); Lymphocytes Absolute Auto 1700 /uL (1100-4500); Lymphocytes Percent Auto 28.5 % (25-40); Mean Corpuscular HGB Conc 33.8 % (30-36); Mean Corpuscular Hemoglobin 29.5 PG (26-34); Mean Corpuscular Volume 87.2 fL (80-100); Monocytes Absolute Auto 400 /uL (0-900); Monocytes Percent Auto 5.9 % (3-14); Neutrophils Absolute Auto 3700 /uL (1500-7000); Neutrophils Percent Auto 62.1 % (50-75); Platelet Count 141 X10^3/uL (150-400); Red Blood Cell Count 4.25 X10^6/uL (4.0-5.2); Red Cell Distribution Width 12.7 % (11.6-14.8)
[2023-03-15 23:19] LABS: Alanine Aminotransferase 16 IU/L (<35); Albumin 4.7 g/dL (3.5-5.0); Albumin Globulin Ratio 1.6 (1.0-2.8); Alkaline Phosphatase 54 U/L (38-126); Aspartate Aminotransferase 34 IU/L (14-36); BUN Creatinine Ratio 18.9 (6-22); Bilirubin Total 0.4 mg/dL (0.2-1.3); Blood Urea Nitrogen 10 mg/dL (7-17); Calcium 9.4 mg/dL (8.4-10.2); Carbon Dioxide 26 mmol/L (22-32); Chloride 101 mmol/L (98-107); Estimated Glomerular Filt Rate > 60 mL/min (>60); Globulin 2.9 g/dL (1.7-4.1); Glucose 121 mg/dL (70-100); HEMOLYSIS 18 (0-50); Lipase 39 U/L (23-300); Potassium 3.2 mmol/L (3.4-5.1); Sodium 136 mmol/L (137-145); Total Protein 7.6 g/dL (6.3-8.2)
--- NOTE | 2023-03-15 23:39 | PC.NURSE ---
ultrasound at bedside
[2023-03-16 01:59] VITALS: BP 98/67; PULSE 71; RESP 18; O2SAT 96
== END 2023-03-16 02:00 | disposition home or self-care (01) ==
PROVIDERS: Emergency Provider Emergency Medicine; PCP Family Medicine
DX: N83.202 Unspecified ovarian cyst, left side (principal); R10.2 Pelvic and perineal pain; N93.9 Abnormal uterine and vaginal bleeding, unspecified; R11.2 Nausea with vomiting, unspecified
CPT/HCPCS: 36415; 76830; 76856; 80053; 81003; 81025; 83690; 85025; 93975; 96374; 96375; 99284; J1885; J2405

== ENCOUNTER 2023-05-08 17:36 | Emergency (ER) | payer OTHER, MEDICAID, SELFPAY ==
[2023-05-08 17:52] VITALS: BP 128/78; PULSE 88; RESP 16; TEMP 36.6; O2SAT 100; BMI 18.4
--- NOTE | 2023-05-08 18:32 | ED.BACK ---
HPI - Back Pain/Injury General Chief Complaint: Back Pain/Injury Stated Complaint: back pain, sx last week, sent by surgeon Time Seen by Provider: 05/08/23 18:10 Source: patient History of Present Illness HPI Narrative: 17-year-old female with history of median arcuate ligament syndrome presents by private vehicle from home for thoracic back pain for the 3-4 days. Prior to symptom onset patient underwent release of median arcuate ligament on 05/01/2023 at [facility]. For her procedure she did have an epidural placed in her upper back. She states she has otherwise been recovering well at home. She has been taking her prescribed medications at home for back pain but it was not seem to be relieving her symptoms. She called her surgeon's office, who stated they did not think that this was related to her surgery, but recommended she be evaluated in the emergency department. Patient denies numbness, weakness, tingling in her legs. Denies bowel or bladder incontinence, denies saddle anesthesia. Related Data Home Medications Medication Instructions Recorded Confirmed ibuprofen 600 mg tablet 600 mg PO Q6H PRN Pain (Scale 05/08/23 05/08/23 Score 4-6) methocarbamol 750 mg tablet 750 mg PO Q8H 05/08/23 05/08/23 oxycodone 5 mg tablet 5 mg PO Q4H PRN Pain (Scale Score 05/08/23 05/08/23 4-6) Allergies Allergy/AdvReac Type Severity Reaction Status Date / Time cephalexin AdvReac Mild Vomiting, Verified 05/08/23 17:56 bloody diarrhea Review of Systems Review of Systems Narrative: negative except as noted above Patient History Medical History Healthy adult Social History housing: house Smoking Status: Never smoker Smoking Status: Never smoker alcohol intake frequency: 0-2 drinks per day Substance Use Type: marijuana Exam Initial Vital Signs Initial Vital Signs: Vital Signs Temperature 98 F 05/08/23 17:52 Pulse Rate 88 05/08/23 17:52 Respiratory Rate 16 05/08/23 17:52 Blood Pressure 128/78 05/08/23 17:52 Pulse Oximetry 100 05/08/23 17:52 Oxygen Delivery Method Room Air 05/08/23 17:52 Const: Awake, alert, no acute distress, nontoxic appearing Cardiac: regular rate, regular rhythm RESP: unlabored, clear bilaterally, no wheezing GI: Soft, surgical wounds well approximated MSK back: Epidural site thoracic back clean, dry, well healed, no midline vertebral tenderness, R lower thoracic paraspinal muscle spasm Skin: Warm, Dry, intact, no rashes Neuro: AO x3, CN II-XII grossly intact, moves all extremities Course Orders Ordered: ED Orders 05/08/23 18:53 CBC Auto Diff [Complete Blood Count AUTO DIFF] Stat CMP [Comprehensive Metabolic Panel] Stat CRP [C-Reactive Protein Quant] Stat Erythrocyte Sedimentation Rate Stat Discontinued Medications Acetaminophen (Acetaminophen 325 Mg Tablet) 975 mg PO NOW ONE Stop: 05/08/23 18:44 Last Admin: 05/08/23 19:07 Dose: 975 mg Documented By: JORGE LUIS Ketorolac Tromethamine (Ketorolac 30 Mg/Ml Vial) 15 mg IV NOW ONE Stop: 05/08/23 18:44 Last Admin: 05/08/23 19:07 Dose: 15 mg Documented By: JORGE LUIS Methocarbamol (Methocarbamol 500 Mg Tablet) 1,000 mg PO NOW ONE Stop: 05/08/23 18:44 Last Admin: 05/08/23 19:06 Dose: 1,000 mg Documented By: JORGE LUIS Vital Signs Vital signs: Vital Signs - 8 hr 05/08/23 17:52 05/08/23 20:57 Temperature 98 F 98.3 F Pulse Rate 88 69 Respiratory Rate 16 16 Blood Pressure 128/78 107/61 Pulse Oximetry 100 100 Oxygen Delivery Method Room Air Room Air MDM - Back Pain/Injury Lab Data 05/08/23 18:53 05/08/23 18:53 Labs: Lab Results 05/08/23 Range/Units 18:53 WBC 6.5 (4.5-11.0) X10^3/uL RBC 4.28 (4.0-5.2) X10^6/uL Hgb 12.9 (12.0-16.0) g/dL Hct 37.8 (36-46) % MCV 88.3 (80-100) fL MCH 30.1 (26-34) PG MCHC 34.1 (30-36) % RDW 13.0 (11.6-14.8) % Plt Count 148 L (150-400) X10^3/uL Neut % (Auto) 69.6 (50-75) % Lymph % (Auto) 23.1 L (25-40) % [place] % (Auto) 6.2 (3-14) % Eos % (Auto) 0.5 L (2-4) % Baso % (Auto) 0.6 (0-2) % Neut # (Auto) 4500 (4661-1193) /uL Lymph # (Auto) 1500 (1251-5854) /uL [place] # (Auto) 400 (0-900) /uL Eos # (Auto) 0 (0-450) /uL Baso # (Auto) 0 (0-100) /uL ESR 5 (0-20) MM/HR Sodium 137 (137-145) mmol/L Potassium 4.2 (3.4-5.1) mmol/L Chloride 103 (98-107) mmol/L Carbon Dioxide 27 (22-32) mmol/L BUN 9 (7-17) mg/dL Creatinine 0.58 (0.52-1.04) mg/dL Estimated GFR > 60 (>60) mL/min BUN/Creatinine Ratio 15.5 (6-22) Glucose 85 (70-100) mg/dL Calcium 9.4 (8.4-10.2) mg/dL Total Bilirubin 0.4 (0.2-1.3) mg/dL AST 25 (14-36) IU/L ALT 25 (<35) IU/L Alkaline Phosphatase 45 (38-126) U/L C-Reactive Protein < 0.5 (<1.0) mg/dL Total Protein 7.5 (6.3-8.2) g/dL Albumin 4.7 (3.5-5.0) g/dL Globulin 2.8 (1.7-4.1) g/dL Albumin/Globulin Ratio 1.7 (1.0-2.8) Point of Care Testing Test Results Negative Urine Dip Bedside Urine Glucose Negative Bedside Urine Bilirubin - Negative Bedside Urine Ketone +/- 5 Urine Specific [place] 1.015 Bedside Urine Occult Blood - Negative Bedside Urine pH 7.5 Bedside Urine Protein +/- 15 Bedside Urine Urobilinogen - Negative Bedside Urine Nitrite - Negative Bedside Urine Leukocytes - Negative Esterase MDM Narrative Medical decision making narrative: Well-appearing patient with thoracic back pain after procedure. Patient's epidural was in the upper thoracic part of her spine pain is in the lower right side of the thoracic back. Patient has no neurologic symptoms. My suspicion is that this is musculoskeletal in nature, I do have overall low suspicion that this is neurologic or related to the patient's epidural, however out of precaution we will order laboratory work including sed rate and CRP. Laboratory work is reviewed, unremarkable. Pain improved with medications. Patient informed of lab results, recommended continuing to take the medications prescribed by her physician and adding Tylenol as needed. Patient has scheduled follow up next week with her surgeon and she was advised to keep this previously scheduled appointment. Discharge Plan Departure Patient Disposition: Home Clinical Impression: Back pain, thoracic Qualifiers: Chronicity: acute Back pain laterality: right Qualified Code(s): M54.6 - Pain in thoracic spine Instructions: DI for Back Spasm Activity Restrictions/Additional Instructions: Your laboratory work today was normal. Keep taking your home pain medications prescribed by your surgeon. You may also take Tylenol for pain. Keep your appointment with your surgeon for follow up. Prescriptions: No Action methocarbamol 750 mg Tablet 750 mg PO Q8H ibuprofen 600 mg Tablet 600 mg PO Q6H PRN (Reason: Pain (Scale Score 4-6)) oxycodone 5 mg Tablet 5 mg PO Q4H PRN (Reason: Pain (Scale Score 4-6)) Referrals: Krystyna Painting MD [Primary Care Provider] - Stand Alone Forms: Patient Portal/API
--- NOTE | 2023-05-08 18:38 | PC.NURSE ---
patient had ABD surgery on . She had an epidural placed and is here because she is having back pain that is not resolved with he Rx pain medication. Her surgical site is well approximated with no drainage, swelling, heat, or discoloration. She has not had a BM since the day of surgery and is taking miralax. She has not had fevers but has had chills. She denies photophobia but has had a headache.
[2023-05-08] MEDS: methocarbamoL 500 MG TABLET 1000 MG PO (19:06)
[2023-05-08 19:07] LABS: Add Manual Diff / Slide Review NO; Basophils Absolute Auto 0 /uL (0-100); Basophils Percent Auto 0.6 % (0-2); Eosinophils Absolute Auto 0 /uL (0-450); Eosinophils Percent Auto 0.5 % (2-4); Hematocrit 37.8 % (36-46); Hemoglobin 12.9 g/dL (12.0-16.0); Lymphocytes Absolute Auto 1500 /uL (1100-4500); Lymphocytes Percent Auto 23.1 % (25-40); Mean Corpuscular HGB Conc 34.1 % (30-36); Mean Corpuscular Hemoglobin 30.1 PG (26-34); Mean Corpuscular Volume 88.3 fL (80-100); Monocytes Absolute Auto 400 /uL (0-900); Monocytes Percent Auto 6.2 % (3-14); Neutrophils Absolute Auto 4500 /uL (1500-7000); Neutrophils Percent Auto 69.6 % (50-75); Platelet Count 148 X10^3/uL (150-400); Red Blood Cell Count 4.28 X10^6/uL (4.0-5.2); White Blood Cell Count 6.5 X10^3/uL (4.5-11.0)
[2023-05-08] MEDS: KETOROLAC 30 MG/ML VIAL 15 MG IV (19:07)
[2023-05-08] MEDS: ACETAMINOPHEN 325 MG TABLET 975 MG PO (19:07)
[2023-05-08 19:30] LABS: Erythrocyte Sedimentation Rate 5 MM/HR (0-20)
[2023-05-08 19:35] LABS: Alanine Aminotransferase 25 IU/L (<35); Albumin 4.7 g/dL (3.5-5.0); Albumin Globulin Ratio 1.7 (1.0-2.8); Alkaline Phosphatase 45 U/L (38-126); Aspartate Aminotransferase 25 IU/L (14-36); BUN Creatinine Ratio 15.5 (6-22); Bilirubin Total 0.4 mg/dL (0.2-1.3); Blood Urea Nitrogen 9 mg/dL (7-17); C-Reactive Protein Quant < 0.5 mg/dL (<1.0); Calcium 9.4 mg/dL (8.4-10.2); Carbon Dioxide 27 mmol/L (22-32); Chloride 103 mmol/L (98-107); Estimated Glomerular Filt Rate > 60 mL/min (>60); Globulin 2.8 g/dL (1.7-4.1); Glucose 85 mg/dL (70-100); HEMOLYSIS < 15 (0-50); Potassium 4.2 mmol/L (3.4-5.1); Sodium 137 mmol/L (137-145); Total Protein 7.5 g/dL (6.3-8.2)
[2023-05-08 20:57] VITALS: BP 107/61; PULSE 69; RESP 16; TEMP 36.8; O2SAT 100
== END 2023-05-08 20:59 | disposition home or self-care (01) ==
PROVIDERS: Emergency Provider Emergency Medicine; PCP Family Medicine
DX: M54.6 Pain in thoracic spine (principal)
CPT/HCPCS: 36415; 80053; 81003; 81025; 85025; 85651; 86140; 96374; 99284; J1885

== ENCOUNTER 2023-07-16 17:26 | Emergency (ER) | payer OTHER, MEDICAID, SELFPAY ==
[2023-07-16 17:44] VITALS: BP 120/90; PULSE 78; RESP 16; TEMP 36.6; O2SAT 97; BMI 18.7
[2023-07-16 18:30] LABS: Bacteria Urine Moderate (10-30); Mucus Urine 4+ (Negative); RBC Urine 0-1/HPF (0-5/HPF); Squamous Epithelial Cell Urine 1-5 /HPF (0-5/HPF); Urine Volume 10mL (spun); WBC Urine 1-5/HPF (0-5/HPF)
[2023-07-16 18:31] LABS: Culture Indicated Urine Cult Not Indicated
[2023-07-16 18:35] LABS: Alanine Aminotransferase 13 IU/L (<35); Alkaline Phosphatase 54 U/L (38-126); Aspartate Aminotransferase 20 IU/L (14-36); BUN Creatinine Ratio 22.4 (6-22); Bilirubin Total 0.4 mg/dL (0.2-1.3); Blood Urea Nitrogen 11 mg/dL (7-17); Calcium 9.2 mg/dL (8.4-10.2); Carbon Dioxide 29 mmol/L (22-32); Chloride 104 mmol/L (98-107); Estimated Glomerular Filt Rate > 60 mL/min (>60); Globulin 2.5 g/dL (1.7-4.1); Glucose 106 mg/dL (70-100); HEMOLYSIS < 15 (0-50); Lipase 23 U/L (23-300); Potassium 3.6 mmol/L (3.4-5.1); Sodium 140 mmol/L (137-145); Total Protein 7.5 g/dL (6.3-8.2)
[2023-07-16 18:36] LABS: Add Manual Diff / Slide Review NO; Basophils Absolute Auto 0 /uL (0-100); Basophils Percent Auto 0.4 % (0-2); Eosinophils Absolute Auto 0 /uL (0-450); Eosinophils Percent Auto 0.4 % (2-4); Hematocrit 39.8 % (36-46); Hemoglobin 13.4 g/dL (12.0-16.0); Lymphocytes Absolute Auto 1700 /uL (1100-4500); Lymphocytes Percent Auto 24.5 % (25-40); Mean Corpuscular HGB Conc 33.6 % (30-36); Mean Corpuscular Hemoglobin 29.8 PG (26-34); Mean Corpuscular Volume 88.9 fL (80-100); Monocytes Absolute Auto 300 /uL (0-900); Monocytes Percent Auto 4.5 % (3-14); Neutrophils Absolute Auto 5000 /uL (1500-7000); Neutrophils Percent Auto 70.2 % (50-75); Platelet Count 156 X10^3/uL (150-400); Red Blood Cell Count 4.48 X10^6/uL (4.0-5.2); Red Cell Distribution Width 12.3 % (11.6-14.8); White Blood Cell Count 7.1 X10^3/uL (4.5-11.0)
--- NOTE | 2023-07-16 19:03 | DI.US.S_ITS ---
PROCEDURE: US PELVIC COMPLETE INDICATIONS: LLQ pain, possible cyst TECHNIQUE: Real-time scanning was performed of the pelvic organs, with image documentation. Additional endovaginal scanning was necessary due to incomplete visualization of the adnexal and endometrial structures by transabdominal scanning. COMPARISON: [facility], US, US PELVIC COMPLETE, 03/15/2023, 23:39. FINDINGS: Uterus: Uterus is anteverted and normal in size at 6.9 x 4.1 x 3.4 cm. The cervix is normal with trace simple fluid in the endocervix. Probable arcuate or subseptate fundal endometrial morphology. The myometrium is homogeneous. The endometrium measures two mm combined thickness. Normal vascularity in the uterus. Ovaries: The right ovary measures 4.8 x 2.9 x 2.3 cm, with a calculated ovarian volume of 16.7 cc. The left ovary measures 3.7 x 2.7 x 2.5 cm, with a calculated ovarian volume of 13.1 cc. The ovaries have a normal sonographic appearance. Normal arterial and venous flow is present in each ovary. Several normally arranged follicles are seen bilaterally. Other: No pathologic free abdominal or pelvic fluid. IMPRESSION: Interval resolution left ovarian cyst seen previously. Possible arcuate or less likely sub septate uterine morphology.. We strive to produce accurate, complete, and clear reports of imaging services. To assist us in improving patient care, this report was composed using standard report templates and voice recognition software. Therefore, it may contain abnormal punctuation, insertions and/or omissions. Occasional wrong-word or sound-alike substitutions may occur. Though we review the report and make efforts to correct it, we do recommend that the report be read carefully in proper context to recognize any text inaccuracies. Dictated by: Mi Nevarez M.D. on 07/16/2023 at 22:26 Approved by: Mi Nevarez M.D. on 07/16/2023 at 22:31
--- NOTE | 2023-07-16 19:12 | PC.NURSE ---
4 episodes of vomiting in last 24hrs
[2023-07-16] MEDS: ACETAMINOPHEN 325 MG TABLET 650 MG PO (19:18)
[2023-07-16] MEDS: SODIUM CHLORIDE 0.9% 1,000 ML 1000 ML IV (19:18)
[2023-07-16] MEDS: ONDANSETRON 4 MG/2 ML INJ IV (19:19)
[2023-07-16] MEDS: KETOROLAC 30 MG/ML VIAL 15 MG IV (19:19)
[2023-07-16] MEDS: TRAMADOL 50 MG TABLET PO (22:36)
--- NOTE | 2023-07-16 23:01 | ED_ITS ---
HPI - General Adult General Chief complaint: Abdominal Pain Stated complaint: [facility] Referral, Severe LLQ Abd Pain Time Seen by Provider: 07/16/23 19:01 Source: patient Mode of arrival: Ambulatory History of Present Illness HPI narrative: Patient has a 17-year-old female here for evaluation of left lower quadrant abdominal pain. She denies any urinary symptoms. No vaginal bleeding. No change in bowel habits. One month ago had a very large left ovarian cyst. She states her symptoms worsened about 1 week ago and have persistent since then. One week ago was also associated with vomiting. No fevers. She was sent to the emergency department from the walk-in clinic. Related Data Allergies Allergy/AdvReac Type Severity Reaction Status Date / Time cephalexin AdvReac Mild Vomiting, Verified 07/15/23 09:59 bloody diarrhea Review of Systems Constitutional Constitutional: Reports system reviewed and no additional complaints, except as documented Gastrointestinal Gastrointestinal: Reports system reviewed and no additional complaints, except as documented Genitourinary Genitourinary: Reports system reviewed and no additional complaints, except as documented Integumentary/Breasts Skin/Breast: Reports system reviewed and no additional complaints, except as documented Patient History 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 Surgical History (Updated 07/15/23 @ 10:41 by Maria Luisa Patten DO) H/O abdominal surgery (~04/2023) Social History housing: house Smoking Status: Never smoker alcohol intake: current (rarely) substance use type: marijuana (occasional) Smoking Status: Never smoker alcohol intake frequency: 0-2 drinks per day Substance Use Type: marijuana Exam Initial Vital Signs Initial Vital Signs: Vital Signs Temperature 98 F 07/16/23 17:44 Pulse Rate 78 07/16/23 17:44 Respiratory Rate 16 07/16/23 17:44 Blood Pressure 120/90 07/16/23 17:44 Pulse Oximetry 97 07/16/23 17:44 Oxygen Delivery Method Room Air 07/16/23 17:44 Const General: cooperative, comfortable and No ill appearing HENMT Head: normal to inspection and normocephalic Resp Effort & Inspection: normal respiratory effort Cardio Rate: regular rate GI Inspection: normal to inspection and non-distended Palpation: soft, No firm, No guarding and No tender Back/Spine/Pelvis Back: No CVA tenderness Skin General: no rashes or lesions noted Neuro General: patient alert and patient awake Course Orders Ordered: ED Orders 07/16/23 17:47 EKG-12 Lead Stat 07/16/23 17:50 Urine Microscopic Stat 07/16/23 18:16 Complete Blood Count AUTO DIFF Stat Comprehensive Metabolic Panel Stat Lipase Stat 07/16/23 19:03 US pelvic complete Stat 07/16/23 19:10 Urine Culture Stat Discontinued Medications Acetaminophen (Acetaminophen 325 Mg Tablet) 650 mg PO NOW ONE Stop: 07/16/23 19:05 Last Admin: 07/16/23 19:18 Dose: 650 mg Documented By: JORGE LUIS Sodium Chloride (Normal Saline 0.9%) 1,000 mls @ 1,000 mls/hr IV BOLUS ONE Stop: 07/16/23 19:44 Last Infusion: 07/16/23 22:02 Dose: Infused Documented By: JORGE LUIS Admin: 07/16/23 19:18 Dose: 1,000 mls/hr Documented By: JORGE LUIS Ketorolac Tromethamine (Ketorolac 30 Mg/Ml Vial) 15 mg IV NOW ONE Stop: 07/16/23 19:05 Last Admin: 07/16/23 19:19 Dose: 15 mg Documented By: JORGE LUIS Ondansetron HCl (Ondansetron 4 Mg Odt) 4 mg PO NOW PRN PRN Reason: Nausea And Vomiting Ondansetron HCl (Ondansetron 4 Mg/2 Ml Inj) 4 mg IV NOW PRN PRN Reason: Nausea And Vomiting Last Admin: 07/16/23 19:19 Dose: 4 mg Documented By: JORGE LUIS Tramadol HCl (Tramadol 50 Mg Tablet) 50 mg PO NOW ONE Stop: 07/16/23 22:27 Last Admin: 07/16/23 22:36 Dose: 50 mg Documented By: ELIZA Vital Signs Vital signs: Vital Signs - 8 hr 07/16/23 17:44 07/16/23 23:11 Temperature 98 F Pulse Rate 78 67 Respiratory Rate 16 18 Blood Pressure 120/90 118/76 Pulse Oximetry 97 99 Oxygen Delivery Method Room Air Room Air Medical Decision Making Lab Data Lab results reviewed: Yes I reviewed the patient's lab results. 07/16/23 18:16 07/16/23 18:16 Labs: Lab Results 07/16/23 07/16/23 Range/Units 17:50 18:16 WBC 7.1 (4.5-11.0) X10^3/uL RBC 4.48 (4.0-5.2) X10^6/uL Hgb 13.4 (12.0-16.0) g/dL Hct 39.8 (36-46) % MCV 88.9 (80-100) fL MCH 29.8 (26-34) PG MCHC 33.6 (30-36) % RDW 12.3 (11.6-14.8) % Plt Count 156 (150-400) X10^3/uL Neut % (Auto) 70.2 (50-75) % Lymph % (Auto) 24.5 L (25-40) % [place] % (Auto) 4.5 (3-14) % Eos % (Auto) 0.4 L (2-4) % Baso % (Auto) 0.4 (0-2) % Neut # (Auto) 5000 (3878-0068) /uL Lymph # (Auto) 1700 (4707-1148) /uL [place] # (Auto) 300 (0-900) /uL Eos # (Auto) 0 (0-450) /uL Baso # (Auto) 0 (0-100) /uL Sodium 140 (137-145) mmol/L Potassium 3.6 (3.4-5.1) mmol/L Chloride 104 (98-107) mmol/L Carbon Dioxide 29 (22-32) mmol/L BUN 11 (7-17) mg/dL Creatinine 0.49 L (0.52-1.04) mg/dL Estimated GFR > 60 (>60) mL/min BUN/Creatinine Ratio 22.4 H (6-22) Glucose 106 H (70-100) mg/dL Calcium 9.2 (8.4-10.2) mg/dL Total Bilirubin 0.4 (0.2-1.3) mg/dL AST 20 (14-36) IU/L ALT 13 (<35) IU/L Alkaline Phosphatase 54 (38-126) U/L Total Protein 7.5 (6.3-8.2) g/dL Albumin 5.0 (3.5-5.0) g/dL Globulin 2.5 (1.7-4.1) g/dL Albumin/Globulin Ratio 2.0 (1.0-2.8) Lipase 23 (23-300) U/L Urine RBC 0-1/hpf (0-5/HPF) Urine WBC 1-5/hpf (0-5/HPF) Ur Squamous Epith Cells 1-5 /hpf (0-5/HPF) Urine Bacteria Moderate (10-30) H (None) Urine Mucus 4+ H (Negative) Ur Culture Indicated? Cult not indicated Vol Urine Centrifuged 10ml (spun) Point of Care Testing Test Results Negative Urine Dip Bedside Urine Glucose Negative Bedside Urine Bilirubin - Negative Bedside Urine Ketone ++ 40 Urine Specific [place] 1.030 Bedside Urine Occult Blood - Negative Bedside Urine pH 6.0 Bedside Urine Protein +/- 15 Bedside Urine Urobilinogen - Negative Bedside Urine Nitrite - Negative Bedside Urine Leukocytes - Negative Esterase Point of care testing: Point of Care Testing Test Results Negative Urine Dip Bedside Urine Glucose Negative Bedside Urine Bilirubin - Negative Bedside Urine Ketone ++ 40 Urine Specific [place] 1.030 Bedside Urine Occult Blood - Negative Bedside Urine pH 6.0 Bedside Urine Protein +/- 15 Bedside Urine Urobilinogen - Negative Bedside Urine Nitrite - Negative Bedside Urine Leukocytes - Negative Esterase Imaging Data US - INSURANCE BILLING SPECIALIST: Radiologist's Impression: PROCEDURE: US PELVIC COMPLETE INDICATIONS: LLQ pain, possible cyst TECHNIQUE: Real-time scanning was performed of the pelvic organs, with image documentation. Additional endovaginal scanning was necessary due to incomplete visualization of the adnexal and endometrial structures by transabdominal scanning. COMPARISON: [facility], US, US PELVIC COMPLETE, 03/15/2023, 23:39. FINDINGS: Uterus: Uterus is anteverted and normal in size at 6.9 x 4.1 x 3.4 cm. The cervix is normal with trace simple fluid in the endocervix. Probable arcuate or subseptate fundal endometrial morphology. The myometrium is homogeneous. The endometrium measures two mm combined thickness. Normal vascularity in the uterus. Ovaries: The right ovary measures 4.8 x 2.9 x 2.3 cm, with a calculated ovarian volume of 16.7 cc. The left ovary measures 3.7 x 2.7 x 2.5 cm, with a calculated ovarian volume of 13.1 cc. The ovaries have a normal sonographic appearance. Normal arterial and venous flow is present in each ovary. Several normally arranged follicles are seen bilaterally. Other: No pathologic free abdominal or pelvic fluid. IMPRESSION: Interval resolution left ovarian cyst seen previously. Possible arcuate or less likely sub septate uterine morphology.. MDM Narrative Medical decision making narrative: Patient has a very benign exam. Ultrasound shows no acute pathology and it does show resolution of the left-sided ovarian cyst. Labs are unremarkable. Had a discussion with the patient and mother regarding her symptoms. They understand the lack of a definitive diagnosis. We discussed that potentially we could obtain CT scan for further evaluation however my suspicion for an acute intra- abdominal surgical pathology is low. I suspect that a CT scan is not warranted today. She was scheduled for colonoscopy in approximately 1 week from now. Plan will be to discharge home with return precautions. Both patient and mother expressed understanding and agreement with plan. Discharge Plan Departure Patient Disposition: Home Clinical Impression: Abdominal pain Instructions: DI for Abdominal Pain-Adult Activity Restrictions/Additional Instructions: I recommend that you continue to take all of your medications as directed. I also recommend that you keep your scheduled medical appointments specifically with your colonoscopy that is scheduled for 1 week from now. Return to the emergency department for new or worsening symptoms. Referrals: Krystyna Painting MD [Primary Care Provider] - Stand Alone Forms: Patient Portal/API
[2023-07-16 23:11] VITALS: BP 118/76; PULSE 67; RESP 18; O2SAT 99
== END 2023-07-16 23:10 | disposition home or self-care (01) ==
PROVIDERS: Emergency Medicine; Emergency Provider Emergency Medicine; PCP Family Medicine
DX: R10.32 Left lower quadrant pain (principal)
CPT/HCPCS: 36415; 76830; 76856; 80053; 81003; 81015; 81025; 83690; 85025; 87086; 93975; 96374; 96375; 99284; J1885; J2405